=== PATIENT | female | born 1955 | race Caucasian/White ===

== ENCOUNTER 2017-11-17 09:53 | Emergency (ER) | payer OTHER | END 2017-11-17 15:22 | disposition home or self-care (01) | LOC: E/R 15:22 | DX: H60.92 Unspecified otitis externa, left ear (principal); J20.9 Acute bronchitis, unspecified; I10 Essential (primary) hypertension; I50.9 Heart failure, unspecified; E11.9 Type 2 diabetes mellitus without complications; Z79.84 Long term (current) use of oral hypoglycemic drugs | CPT/HCPCS: 99284; Z7502 ==

== ENCOUNTER 2018-12-03 05:18 | Inpatient (IN) | payer OTHER ==
[2018-12-03] MEDS: ONDANSETRON 4 MG INJ IV (06:16)
[2018-12-03] MEDS: morphine 2 MG INJ IV (06:16)
[2018-12-03] MEDS: SOD CHLORIDE 0.9% 500 ML IV (06:17)
[2018-12-03 06:29] LABS: ADD MAN DIFF? NO
[2018-12-03 06:32] LABS: WHITE BLOOD COUNT 9.9 10^3/ul (4.8-10.8)
[2018-12-03 06:32] LABS: BASOPHIL # 0.1 10^3/ul (0.0-0.1); BASOPHILS % 0.6 % (0.0-2.0); HEMATOCRIT 46.2 % (37.0-47.0); HEMOGLOBIN 14.9 g/dl (12.0-16.0); LYMPHOCYTES # 2.9 10^3/ul (0.8-2.9); MEAN CORPUSCULAR HEMOGLOBIN 28.7 pg (29.0-33.0); MEAN CORPUSCULAR HGB CONC 32.3 g/dl (32.0-37.0); MONOCYTE # 0.9 10^3/ul (0.3-0.9); MONOCYTES % 9.4 % (0.0-11.0); NEUTROPHILS % 60.3 % (39.0-77.0); PLATELET COUNT 233 10^3/UL (140-415); RED BLOOD COUNT 5.19 10^6/ul (4.20-5.40); RED CELL DISTRIBUTION WIDTH 14.6 % (11.5-14.5)
[2018-12-03] MEDS: SOD CHLORIDE 0.9% 1,000 ML IV ×3 (06:56→14:44)
[2018-12-03 07:03] LABS: ALANINE AMINOTRANSFERASE 18 IU/L (13-69); ALBUMIN 4.1 g/dl (3.3-4.9); ALBUMIN/GLOBULIN RATIO 0.89; ALKALINE PHOSPHATASE 144 IU/L (42-121); ANION GAP 27 (5-13); ASPARTATE AMINO TRANSFERASE 37 IU/L (15-46); BILIRUBIN,INDIRECT 0.1 mg/dl (0-1.1); BILIRUBIN,TOTAL 0.1 mg/dl (0.2-1.3); BLOOD UREA NITROGEN 62 mg/dl (7-20); CALCIUM 9.5 mg/dl (8.4-10.2); CARBON DIOXIDE 11 mmol/L (21-31); CHLORIDE 96 mmol/L (97-110); CREATININE 7.47 mg/dl (0.44-1.00); Estimated GFR 6 mL/min (>60); GLUCOSE 242 mg/dl (70-220); LIPASE 87 U/L (23-300); POTASSIUM 4.3 mmol/L (3.5-5.1); SODIUM 134 mmol/L (135-144); TOTAL PROTEIN 8.7 g/dl (6.1-8.1)
[2018-12-03] MEDS ORDERED: ONDANSETRON 4 MG INJ IV ×2 (09:30→14:00)
[2018-12-03] MEDS ORDERED: ACETAMINOPHEN 325 MG TAB PO ×2 (09:30→14:00)
[2018-12-03] MEDS: ERTAPENEM SODIUM 1 GM in SOD CHLORIDE 0.9% 100 ML IVPB (10:22)
[2018-12-03] MEDS ORDERED: NACL 0.9% 3 ML SYG IV (14:00)
[2018-12-03] MEDS ORDERED: GLUCOSE GEL 15 GRAM TUBE BUCCAL (14:30)
[2018-12-03] MEDS ORDERED: GLUCAGON 1 MG INJ IM (14:30)
[2018-12-03] MEDS ORDERED: DEXTROSE 50% 50 ML SYRINGE IV ×2 (14:30)
[2018-12-03] MEDS ORDERED: GLUCOSE GEL 15 GRAM TUBE PO ×2 (14:30)
[2018-12-03] MEDS: CIPROFLOXACIN 500 MG TAB PO (14:43)
[2018-12-03] MEDS: LOPERAMIDE 2 MG CAP PO (14:43)
[2018-12-03] MEDS: metroNIDAZOLE 500 MG TAB NGT ×2 (14:43→21:17)
[2018-12-03] MEDS: HYDROCODONE/APAP (5/325) TAB PO ×2 (14:44→20:08)
[2018-12-03] MEDS: INSULIN ASPART [NOVOLOG] 3 ML PEN SC ×2 (17:03→20:09)
[2018-12-03] MEDS: ATORVASTATIN 10 MG TAB PO (20:08)
[2018-12-04] MEDS: ACCU-CHEK XX (02:00)
[2018-12-04] MEDS: morphine 2 MG INJ IV (02:23)
[2018-12-04] MEDS: SOD CHLORIDE 0.9% 1,000 ML IV ×2 (02:58→06:46)
[2018-12-04] MEDS: HYDROCODONE/APAP (10/325) TAB PO (06:26)
[2018-12-04] MEDS: PANTOPRAZOLE (EC) 40 MG TAB PO (06:26)
[2018-12-04] MEDS: metroNIDAZOLE 500 MG TAB NGT ×3 (06:27→21:08)
[2018-12-04] MEDS: LOPERAMIDE 2 MG CAP PO ×2 (06:45→17:53)
[2018-12-04] MEDS: INSULIN ASPART [NOVOLOG] 3 ML PEN SC ×4 (07:55→20:55)
[2018-12-04 08:47] LABS: WHITE BLOOD COUNT 7.4 10^3/ul (4.8-10.8)
[2018-12-04 08:47] LABS: HEMATOCRIT 39.4 % (37.0-47.0); HEMOGLOBIN 12.4 g/dl (12.0-16.0); MEAN CORPUSCULAR HEMOGLOBIN 28.4 pg (29.0-33.0); MEAN CORPUSCULAR HGB CONC 31.5 g/dl (32.0-37.0); MEAN CORPUSCULAR VOLUME 90.4 fl (82.0-101.0); MEAN PLATELET VOLUME 12.1 fl (7.4-10.4); PLATELET COUNT 160 10^3/UL (140-415); RED BLOOD COUNT 4.36 10^6/ul (4.20-5.40)
[2018-12-04 08:48] LABS: ADD MAN DIFF? YES; POSITIVE DIFF @See below
[2018-12-04] MEDS: DULOXETINE 30 MG CAP DR PO (08:56)
[2018-12-04 09:09] LABS: ALANINE AMINOTRANSFERASE 17 IU/L (13-69); ALBUMIN 3.3 g/dl (3.3-4.9); ALBUMIN/GLOBULIN RATIO 0.89; ALKALINE PHOSPHATASE 115 IU/L (42-121); ANION GAP 17 (5-13); ASPARTATE AMINO TRANSFERASE 34 IU/L (15-46); BILIRUBIN,INDIRECT 0.1 mg/dl (0-1.1); BILIRUBIN,TOTAL 0.1 mg/dl (0.2-1.3); BLOOD UREA NITROGEN 70 mg/dl (7-20); CALCIUM 8.3 mg/dl (8.4-10.2); CARBON DIOXIDE 12 mmol/L (21-31); CHLORIDE 106 mmol/L (97-110); CHOL/HDL RATIO 7.2 RATIO; CHOLESTEROL 145 mg/dl (100-200); CREATININE 6.81 mg/dl (0.44-1.00); Estimated GFR 6 mL/min (>60); GLUCOSE 73 mg/dl (70-220); HDL CHOLESTEROL 20 mg/dl (35-98); LDL CHOLESTEROL,CALCULATED 82 mg/dl; MAGNESIUM 1.9 mg/dl (1.7-2.5); PHOSPHORUS 6.4 mg/dl (2.5-4.9); POTASSIUM 3.8 mmol/L (3.5-5.1); SODIUM 135 mmol/L (135-144); TRIGLYCERIDES 217 mg/dl (0-149)
[2018-12-04 09:26] LABS: HEMOGLOBIN A1C 7.5 % (0-5.9)
[2018-12-04 09:58] LABS: ANISOCYTOSIS 1+ (0-0); BAND NEUTROPHILS #M 1.4 10^3/ul (0.0-0.6); BAND NEUTROPHILS % (M) 19 % (0-4); BASOPHILS % (M) 1 % (0-2); BURR CELLS 1+ (0-0); LYMPHOCYTES #M 2.7 10^3/ul (0.8-2.9); LYMPHOCYTES % (M) 37 % (15-51); MICROCYTOSIS 1+ (0-0); MONOCYTE #M 0.5 10^3/ul (0.3-0.9); MONOCYTES % (M) 7 % (0-11); PLATELET ESTIMATE NORMAL; POIKILOCYTOSIS 1+ (0-0); POLYCHROMASIA 1+ (0-0); SEG NEUT #M 2.8 10^3/ul (1.6-7.5); SEGMENTED NEUTROPHILS (M) % 36 % (39-77); SMUDGE%M 9 % (0-0); THYROID STIMULATING HORMONE 0.133 MIU/L (0.465-4.680)
[2018-12-04] MEDS: CIPROFLOXACIN 500 MG TAB PO (13:45)
[2018-12-04] MEDS: HYDROCODONE/APAP (5/325) TAB PO ×2 (13:46→20:41)
[2018-12-04 18:23] LABS: ADD UMIC YES; UR ASCORBIC ACID NEGATIVE (NEGATIVE); UR BACTERIA FEW /HPF (NONE SEEN); UR BILIRUBIN (Dip) NEGATIVE (NEGATIVE); UR BLOOD (Dip) 1+ mg/dL (NEGATIVE); UR CLARITY CLOUDY (CLEAR); UR COLOR YELLOW (YELLOW); UR GLUCOSE (Dip) NEGATIVE (NEGATIVE); UR KETONES (Dip) NEGATIVE (NEGATIVE); UR LEUKOCYTE ESTERASE (Dip) TRACE Leu/ul (NEGATIVE); UR MUCUS FEW /HPF (NONE SEEN); UR NITRITE (Dip) NEGATIVE (NEGATIVE); UR RBC 3 /HPF (0-5); UR SPECIFIC GRAVITY (Dip) 1.009 (1.003-1.030); UR SQUAMOUS EPITHELIAL CELL FEW /HPF (FEW); UR TOTAL PROTEIN (Dip) NEGATIVE (NEGATIVE); UR UROBILINOGEN (Dip) NEGATIVE (NEGATIVE); UR WBC 11 /HPF (0-5)
[2018-12-04 18:28] LABS: SODIUM,URINE RANDOM 85 mmol/L (30-90)
[2018-12-04 18:28] LABS: CREATININE,URINE RANDOM 79.49 mg/dl (20-320)
[2018-12-04] MEDS: ATORVASTATIN 10 MG TAB PO (20:41)
[2018-12-05] MEDS: HYDROCODONE/APAP (10/325) TAB PO ×3 (04:42→17:11)
[2018-12-05] MEDS: metroNIDAZOLE 500 MG TAB NGT ×3 (06:05→21:34)
[2018-12-05] MEDS: PANTOPRAZOLE (EC) 40 MG TAB PO (06:05)
[2018-12-05] MEDS: SOD CHLORIDE 0.9% 1,000 ML IV ×2 (06:06→18:43)
[2018-12-05] MEDS: INSULIN ASPART [NOVOLOG] 3 ML PEN SC ×4 (07:55→20:53)
[2018-12-05 08:42] LABS: ADD MAN DIFF? NO
[2018-12-05 08:43] LABS: WHITE BLOOD COUNT 5.8 10^3/ul (4.8-10.8)
[2018-12-05 08:43] LABS: BASOPHILS % 0.3 % (0.0-2.0); EOSINOPHILS # 0.1 10^3/ul (0.0-0.5); HEMATOCRIT 36.8 % (37.0-47.0); HEMOGLOBIN 11.8 g/dl (12.0-16.0); LYMPHOCYTES # 2.3 10^3/ul (0.8-2.9); LYMPHOCYTES % 39.3 % (15.0-51.0); MEAN CORPUSCULAR HEMOGLOBIN 28.7 pg (29.0-33.0); MEAN CORPUSCULAR HGB CONC 32.1 g/dl (32.0-37.0); MEAN CORPUSCULAR VOLUME 89.5 fl (82.0-101.0); MEAN PLATELET VOLUME 12.4 fl (7.4-10.4); MONOCYTE # 0.7 10^3/ul (0.3-0.9); MONOCYTES % 11.2 % (0.0-11.0); NEUTROPHIL # 2.8 10^3/ul (1.6-7.5); NEUTROPHILS % 47.3 % (39.0-77.0); PLATELET COUNT 132 10^3/UL (140-415); RED BLOOD COUNT 4.11 10^6/ul (4.20-5.40); RED CELL DISTRIBUTION WIDTH 14.8 % (11.5-14.5)
[2018-12-05 09:31] LABS: ANION GAP 16 (5-13); BLOOD UREA NITROGEN 72 mg/dl (7-20); CALCIUM 8.4 mg/dl (8.4-10.2); CARBON DIOXIDE 11 mmol/L (21-31); CHLORIDE 106 mmol/L (97-110); CREATININE 6.16 mg/dl (0.44-1.00); Estimated GFR 7 mL/min (>60); GLUCOSE 89 mg/dl (70-220); MAGNESIUM 1.9 mg/dl (1.7-2.5); PHOSPHORUS 6.7 mg/dl (2.5-4.9); POTASSIUM 3.6 mmol/L (3.5-5.1); SODIUM 133 mmol/L (135-144)
[2018-12-05] MEDS: DULOXETINE 30 MG CAP DR PO (10:44)
[2018-12-05] MEDS: CIPROFLOXACIN 500 MG TAB PO (14:18)
[2018-12-05] MEDS: ATORVASTATIN 10 MG TAB PO (20:52)
[2018-12-06] MEDS: SOD CHLORIDE 0.9% 1,000 ML IV ×2 (04:56→17:34)
[2018-12-06] MEDS: metroNIDAZOLE 500 MG TAB NGT ×3 (05:43→23:26)
[2018-12-06 05:55] LABS: ADD MAN DIFF? NO
[2018-12-06] MEDS: HYDROCODONE/APAP (5/325) TAB PO ×2 (05:59→20:46)
[2018-12-06 06:00] LABS: BASOPHILS % 0.6 % (0.0-2.0); EOSINOPHILS # 0.1 10^3/ul (0.0-0.5); EOSINOPHILS % 1.3 % (0.0-7.0); HEMATOCRIT 37.7 % (37.0-47.0); HEMOGLOBIN 12.3 g/dl (12.0-16.0); LYMPHOCYTES # 1.5 10^3/ul (0.8-2.9); MEAN CORPUSCULAR HEMOGLOBIN 28.9 pg (29.0-33.0); MEAN CORPUSCULAR HGB CONC 32.6 g/dl (32.0-37.0); MEAN CORPUSCULAR VOLUME 88.5 fl (82.0-101.0); MEAN PLATELET VOLUME 11.9 fl (7.4-10.4); MONOCYTE # 0.6 10^3/ul (0.3-0.9); MONOCYTES % 10.2 % (0.0-11.0); NEUTROPHIL # 3.2 10^3/ul (1.6-7.5); PLATELET COUNT 128 10^3/UL (140-415); RED BLOOD COUNT 4.26 10^6/ul (4.20-5.40); RED CELL DISTRIBUTION WIDTH 14.7 % (11.5-14.5)
[2018-12-06 06:00] LABS: WHITE BLOOD COUNT 5.4 10^3/ul (4.8-10.8)
[2018-12-06 06:34] LABS: ANION GAP 17 (5-13); BLOOD UREA NITROGEN 66 mg/dl (7-20); CALCIUM 8.5 mg/dl (8.4-10.2); CARBON DIOXIDE 13 mmol/L (21-31); CHLORIDE 105 mmol/L (97-110); CREATININE 4.58 mg/dl (0.44-1.00); Estimated GFR 10 mL/min (>60); GLUCOSE 118 mg/dl (70-220); MAGNESIUM 1.8 mg/dl (1.7-2.5); PHOSPHORUS 6.6 mg/dl (2.5-4.9); POTASSIUM 3.8 mmol/L (3.5-5.1); SODIUM 135 mmol/L (135-144)
[2018-12-06] MEDS: INSULIN ASPART [NOVOLOG] 3 ML PEN SC ×4 (08:00→20:47)
[2018-12-06] MEDS: CITRIC ACID/NA CITRATE 30 ML CUP PO ×2 (12:20→20:37)
[2018-12-06] MEDS: DULOXETINE 30 MG CAP DR PO (12:20)
[2018-12-06 15:02] LABS: CREATININE, RANDOM URINE 78 mg/dL (20-275); MICROALBUMIN 5.7 mg/dL; MICROALBUMIN/CREATININE RATIO 73 (<30)
[2018-12-06] MEDS: CIPROFLOXACIN 500 MG TAB PO (15:33)
[2018-12-06] MEDS: ATORVASTATIN 10 MG TAB PO (20:37)
[2018-12-07] MEDS: metroNIDAZOLE 500 MG TAB NGT (05:28)
[2018-12-07 06:22] LABS: ADD MAN DIFF? NO
[2018-12-07 06:26] LABS: WHITE BLOOD COUNT 5.2 10^3/ul (4.8-10.8)
[2018-12-07 06:26] LABS: BASOPHILS % 0.4 % (0.0-2.0); EOSINOPHILS # 0.1 10^3/ul (0.0-0.5); EOSINOPHILS % 2.1 % (0.0-7.0); HEMATOCRIT 35.9 % (37.0-47.0); HEMOGLOBIN 11.9 g/dl (12.0-16.0); LYMPHOCYTES # 1.6 10^3/ul (0.8-2.9); LYMPHOCYTES % 30.9 % (15.0-51.0); MEAN CORPUSCULAR HEMOGLOBIN 28.5 pg (29.0-33.0); MEAN CORPUSCULAR HGB CONC 33.1 g/dl (32.0-37.0); MEAN CORPUSCULAR VOLUME 86.1 fl (82.0-101.0); MEAN PLATELET VOLUME 11.2 fl (7.4-10.4); MONOCYTE # 0.5 10^3/ul (0.3-0.9); MONOCYTES % 9.5 % (0.0-11.0); NEUTROPHIL # 2.9 10^3/ul (1.6-7.5); NEUTROPHILS % 55.4 % (39.0-77.0); PLATELET COUNT 150 10^3/UL (140-415); RED BLOOD COUNT 4.17 10^6/ul (4.20-5.40); RED CELL DISTRIBUTION WIDTH 14.6 % (11.5-14.5)
[2018-12-07 06:42] LABS: ANION GAP 15 (5-13); BLOOD UREA NITROGEN 48 mg/dl (7-20); CALCIUM 8.4 mg/dl (8.4-10.2); CARBON DIOXIDE 17 mmol/L (21-31); CHLORIDE 107 mmol/L (97-110); CREATININE 2.52 mg/dl (0.44-1.00); Estimated GFR 19 mL/min (>60); GLUCOSE 163 mg/dl (70-220); MAGNESIUM 1.5 mg/dl (1.7-2.5); PHOSPHORUS 4.9 mg/dl (2.5-4.9); POTASSIUM 3.3 mmol/L (3.5-5.1); SODIUM 139 mmol/L (135-144)
[2018-12-07] MEDS: DULOXETINE 30 MG CAP DR PO (08:03)
[2018-12-07] MEDS: CITRIC ACID/NA CITRATE 30 ML CUP PO (08:03)
[2018-12-07] MEDS: INSULIN ASPART [NOVOLOG] 3 ML PEN SC (08:03)
== END 2018-12-07 11:30 | disposition home or self-care (01) | DRG 391 ==
LOC: E/R 05:18 → 2NE 12-05 18:05 → TEL 09:19
PROVIDERS: Internal Medicine
DX: K57.92 Diverticulitis of intestine, part unspecified, without perforation or abscess without bleeding (principal); N17.0 Acute kidney failure with tubular necrosis; E87.2 Acidosis; E86.0 Dehydration; E83.39 Other disorders of phosphorus metabolism; E11.9 Type 2 diabetes mellitus without complications; F32.9 Major depressive disorder, single episode, unspecified; K52.9 Noninfective gastroenteritis and colitis, unspecified
CPT/HCPCS: 36415; 74176; 76775; 80048; 80053; 80061; 81001; 81003; 82043; 82962; 83036; 83690; 83735; 84100; 84155; 84300; 84443; 85025; 87040-91; 96374; 96375; 99285-25